=== PATIENT | female | born 1965 | race Hispanic/Latino ===

== ENCOUNTER 2018-06-07 14:14 | Emergency (ER) | payer SELFPAY ==
[2018-06-07] MEDS ORDERED: IPRATROPIUM/ALBUTEROL SULFATE 3 ML SOLUTION IH ONE (15:03)
== END 2018-06-07 16:04 | disposition home or self-care (01) ==
LOC: EDH 14:14
DX: J40 Bronchitis, not specified as acute or chronic (principal); B34.9 Viral infection, unspecified
CPT/HCPCS: 71045; 87804; 94640

== ENCOUNTER 2019-05-08 15:10 | Emergency (ER) | payer OTHER, SELFPAY ==
[2019-05-08 15:51] LABS: BASOPHILS % (AUTO) 0.6 % (0.0-5.0); EOSINOPHILS % (AUTO) 2.3 % (0.0-8.0); HEMATOCRIT 38.1 % (36-48); LYMPHOCYTES % (AUTO) 28.2 % (21.0-51.0); MEAN CORPUSCULAR HGB CONC 34.7 g/dL (32.0-36.0); MEAN CORPUSCULAR VOLUME 86.4 fL (79-99); MONOCYTES % (AUTO) 7.5 % (3.0-13.0); NEUTROPHILS % (AUTO) 61.4 % (40.0-77.0); NUCLEATED RED BLOOD CELLS 0.1 % (0.0-0.19); PLATELET COUNT (AUTO) 250 K/uL (130-400); RED BLOOD CELL COUNT(AUTO) 4.41 MIL/uL (4.00-5.50); RED CELL DISTRIBUTION WIDTH 13.1 % (11.0-15.5)
[2019-05-08 16:03] LABS: CREATININE 0.8 mg/dL (0.5-1.5); POTASSIUM 3.6 mmol/L (3.5-5.1)
[2019-05-08 16:11] LABS: APPEARANCE,URINE Clear (CLEAR); BILIRUBIN,URINE Negative (NEGATIVE); COLOR,URINE Yellow (YELLOW); GLUCOSE, URINE (UA) Negative (NEGATIVE); KETONES,URINE Negative (NEGATIVE); LEUKOCYTE ESTERASE ,URINE Negative (NEGATIVE); NITRATE,URINE Negative (NEGATIVE); OCCULT BLOOD,URINE Negative (NEGATIVE); PH,URINE 5.5 (5.0-8.0); PROTEIN,URINE Negative (NEGATIVE)
[2019-05-08 16:14] LABS: ALBUMIN 3.7 g/dL (3.5-5.0); BILIRUBIN,TOTAL 0.2 mg/dL (0.2-1.0); TOTAL PROTEIN, SERUM 7.8 g/dL (6.0-8.3)
== END 2019-05-08 17:56 | disposition home or self-care (01) ==
LOC: EDH 15:10
DX: R19.7 Diarrhea, unspecified (principal); R20.2 Paresthesia of skin; R51 Headache
CPT/HCPCS: 36415; 80053; 81003; 83690; 85025